=== PATIENT | female | born 1985 | race Caucasian/White ===

== ENCOUNTER 2017-10-07 18:34 | Emergency (ER) | payer OTHER ==
[~2017-10-07] VITALS: Ht 162.6 cm; Wt 65.8 kg
[~2017-10-07 18:34] MED LIST: ALBU90OI INH; ALPR.25; AMOCLA875 PO; AMOX500 PO; CEPH500 PO; CIPR500 PO; CODGUAEL PO; Depo-Prove150 MG/11; ENDOCET 2.5-321 EACH; HYDACE5 PO; IBUP600 PO; IBUP800 PO; Imitrex50 MG; LEVFLO500 PO; MEDR150I; MEDR150I IM; MULVITMINE PO; NAPR500 PO; NITR100CA PO; OXYACE5T PO; OXYACE7.5T PO; PENVK250 PO; PENVK500 PO; PHENA200 PO; PROM25 PO; RXCODGUASY PO; RXHYDACE PO; RXOXYACE PO; RXPENVK250 PO; RXPHEN200 PO; SULTRIDS PO; TRAM50 PO
[2017-10-07] MEDS ORDERED: CEPH500 PO (20:22)
[2018-09-12] MEDS ORDERED: Ultram50 MG PO (08:46)
[2018-09-12] MEDS ORDERED: CYCL10 PO (08:46)
[2018-09-12] MEDS ORDERED: NAPR550 PO (08:46)
[2018-09-12] MEDS ORDERED: HYDR1TAB94 PO (09:01)
== END 2017-10-07 20:42 | disposition home or self-care (01) ==
LOC: ER 18:34
DX: N76.4 Abscess of vulva (principal); Z79.899 Other long term (current) drug therapy; F17.200 Nicotine dependence, unspecified, uncomplicated
CPT/HCPCS: 56405; 99284

== ENCOUNTER 2017-12-31 18:55 | Emergency (ER) | payer OTHER ==
[~2017-12-31] VITALS: Ht 172.7 cm; Wt 69.8 kg
[2017-12-31] MEDS ORDERED: Bactrim Ds Tab1 EACH PO (20:12)
[2017-12-31] MEDS ORDERED: Keflex500 MG PO (20:12)
== END 2017-12-31 20:33 | disposition home or self-care (01) ==
LOC: ER 18:55
DX: L02.11 Cutaneous abscess of neck (principal); Z79.899 Other long term (current) drug therapy; F17.200 Nicotine dependence, unspecified, uncomplicated
CPT/HCPCS: 99283

== ENCOUNTER 2018-01-03 20:13 | Emergency (ER) | payer OTHER ==
[~2018-01-03] VITALS: Ht 172.7 cm; Wt 68.0 kg
[~2018-01-03 20:13] MED LIST changes: +Bactrim Ds Tab1 EACH PO; +Keflex500 MG PO
[2018-01-03] MEDS ORDERED: Vibramycin100 MG PO (21:20)
== END 2018-01-03 21:25 | disposition home or self-care (01) ==
LOC: ER 20:13
DX: L02.11 Cutaneous abscess of neck (principal); F17.200 Nicotine dependence, unspecified, uncomplicated; Z86.14 Personal history of Methicillin resistant Staphylococcus aureus infection
CPT/HCPCS: 10060; 99283

== ENCOUNTER 2018-01-04 13:49 | Emergency (ER) | payer OTHER ==
[~2018-01-04] VITALS: Ht 172.7 cm; Wt 69.8 kg
[~2018-01-04 13:49] MED LIST changes: +Vibramycin100 MG PO
[2018-01-04 15:33] LABS: BASOPHILS ABSOLUTE AUTO 0.01 K/mm3 (0.00-0.23); BASOPHILS PERCENT AUTO 0 % (0-2); EOSINOPHILS ABSOLUTE AUTO 0.22 K/mm3 (0.00-0.68); EOSINOPHILS PERCENT AUTO 4 % (0-6); Hematocrit 42.1 % (33.0-51.0); IMMATURE GRAN ABSOLUTE AUTO 0.01 K/mm3 (0.00-0.10); IMMATURE GRAN PERCENT AUTO 0 % (0-1); LYMPHOCYTES ABSOLUTE AUTO 1.14 K/mm3 (0.84-5.20); LYMPHOCYTES PERCENT AUTO 19 % (21-46); MONOCYTES ABSOLUTE AUTO 0.52 K/mm3 (0.16-1.47); MONOCYTES PERCENT AUTO 9 % (4-13); Mean Corpuscular HGB 27.7 pg (26.0-34.0); Mean Corpuscular HGB Conc 33.3 g/dL (31.5-36.5); Mean Corpuscular Volume 83 fL (80-100); Mean Platelet Volume 9.7 fL (9.1-12.4); NEUTROPHILS PERCENT AUTO 69 % (41-73); Platelet Count 284 K/mm3 (150-400); RDW Coefficient Variation 13.3 % (11.7-14.2); RDW Standard Deviation 40.9 fL (35.1-46.3); Red Blood Cell Count 5.05 M/mm3 (3.80-5.20)
[2018-01-04 16:00] LABS: Alanine Aminotransfer (ALT/SGP 28 U/L (12-78); Albumin, Blood 4.1 g/dL (3.4-5.0); Alk Phos 72 U/L (50-136); Anion Gap 10 mmol/L (6-16); Aspartate Aminotrans (AST/SGOT 16 U/L (12-37); Bilirubin, Total 0.3 mg/dL (0.1-1.0); Blood Urea Nitrogen 6 mg/dL (8-24); Bun/Creatinine Ratio 10.2 (12.0-20.0); CO2, Blood 24 mmol/L (21-32); Calcium, Blood 8.7 mg/dL (8.5-10.1); Chloride, Blood 106 mmol/L (98-108); Creatinine, Blood 0.59 mg/dL (0.40-1.00); Glomerular Filtration Rate >60 (60-); Glucose, Blood 97 mg/dL (70-99); Potassium, Blood 3.5 mmol/L (3.5-5.5); Sodium, Blood 140 mmol/L (136-145); Total Protein, Blood 8.1 g/dL (6.4-8.2)
== END 2018-01-04 20:37 | disposition home or self-care (01) ==
LOC: ER 13:49
PROVIDERS: Physician Assistant
DX: L03.221 Cellulitis of neck (principal); F17.200 Nicotine dependence, unspecified, uncomplicated; Z79.899 Other long term (current) drug therapy
CPT/HCPCS: 36415; 70491; 80053; 85025; 99284; Q9967

== ENCOUNTER 2025-06-11 15:56 | Emergency (ER) | payer OTHER ==
[~2025-06-11] VITALS: Ht 172.7 cm; Wt 71.7 kg
[~2025-06-11 15:56] MED LIST changes: +CYCL10 PO; +HYDR1TAB94 PO; +NAPR550 PO; +Ultram50 MG PO
[2025-06-11 16:15] VITALS: BP 137/83
[2025-06-11] MEDS ORDERED: Lidocaine HCl 4% Cream 5 GM TOP ONE (16:20)
[2025-06-11] MEDS ORDERED: ASPERFLEX LIDOC15 GM TOP (16:22)
[2025-06-11] MEDS ORDERED: VALACYCLOVIR1000 M1 PO (16:22)
== END 2025-06-11 16:29 | disposition home or self-care (01) ==
LOC: ER 15:56
DX: B02.9 Zoster without complications (principal); Z79.899 Other long term (current) drug therapy
CPT/HCPCS: 99282; A9270